=== PATIENT | female | born 1965 | race African-American/Black ===

== ENCOUNTER 2021-06-06 09:45 | Emergency (ER) | payer OTHER, BC ==
[2021-06-06 09:56] VITALS: BP 140/75; PULSE 80; TEMP 97.6; BMI 36.8
[2021-06-06] MEDS ORDERED: MECLIZINE HCL 25 MG TABLET (FP) PO ONE (10:03)
[2021-06-06] MEDS ORDERED: ONDANSETRON 4 MG TABLET PO ONE (10:04)
[2021-06-06] MEDS ORDERED: ONDANSETRON *ODT* 4 MG TABLET ONE (10:06)
[2021-06-06] MEDS ORDERED: MECLIZINE HCL 25 MG TABLET (FP) ONE (10:06)
[2021-06-06 11:19] LABS: HEMOGLOBIN 14.5 GM/dl (10.7-15.3)
[2021-06-06 11:26] LABS: HEMATOCRIT 42.8 % (32.4-45.2); MCH 28.4 pg (25.7-33.7); MEAN CELL VOLUME 83.6 fl (80-96); PLATELET COUNT 213 10^3/uL (134-434); RBC 5.12 M/mm3 (3.60-5.2); RDW 13.6 % (11.6-15.6); WHITE BLOOD COUNT 4.2 K/mm3 (4.0-10.8)
[2021-06-06 11:26] LABS: ALBUMIN 4.3 g/dl (3.4-5.0); BILIRUBIN,TOTAL 0.6 mg/dl (0.2-1); CALCIUM 8.7 mg/dl (8.5-10); CREATININE 0.8 mg/dl (0.55-1.3); TOT PROT 6.9 g/dl (6.4-8.2)
[2021-06-06 14:30] LABS: PLATELET ESTIMATE ADEQUATE
== END 2021-06-06 13:30 | disposition home or self-care (01) ==
LOC: FER 09:45
DX: H81.10 Benign paroxysmal vertigo, unspecified ear (principal)
CPT/HCPCS: 36415; 80053; 85025; 93005; 99283-25